=== PATIENT | female | born 1985 | race African-American/Black ===

== ENCOUNTER 2020-10-03 12:19 | Emergency (ER) | payer SELFPAY | END 2020-10-03 12:28 | disposition left against medical advice (07) | LOC: MED 12:19 | DX: R10.9 Unspecified abdominal pain (principal); Z53.21 Procedure and treatment not carried out due to patient leaving prior to being seen by health care provider ==

== ENCOUNTER 2023-02-13 19:49 | Emergency (ER) | payer OTHER ==
[~2023-02-13] VITALS: Ht 162.6 cm; Wt 119.7 kg
[2023-02-13 20:00] VITALS: BP 163/115; PULSE 105; RESP 20; TEMP 97.9; O2SAT 100
[2023-02-13] MEDS ORDERED: KETOROLAC 60 MG/2 ML VIAL IM ONE (20:55)
[2023-02-13] MEDS ORDERED: ATA25 PO (21:04)
[2023-02-13] MEDS ORDERED: IBUP-2213 PO (21:04)
[2023-02-13 21:48] VITALS: BP 163/115; PULSE 105; RESP 20; TEMP 97.9; O2SAT 100
== END 2023-02-13 21:48 | disposition home or self-care (01) ==
LOC: MED 19:49
DX: R07.9 Chest pain, unspecified (principal); F41.9 Anxiety disorder, unspecified; J45.909 Unspecified asthma, uncomplicated; I10 Essential (primary) hypertension
CPT/HCPCS: 93005; 96372; 99283; J1885